=== PATIENT | female | born 1990 | race Caucasian/White ===

== ENCOUNTER 2017-02-05 00:14 | Emergency (ER) | payer OTHER ==
--- NOTE | 2017-02-05 01:07 | ED Physician Documentation ---
PD HPI HEENT - Stated complaint Stated Complaint: TOOTHACHE - Chief complaint Chief Complaint: Heent - History obtained from History obtained from: Patient - History of Present Illness Timing - onset: Today Timing - details: Gradual onset Pain level now: 8 Location: Tooth Improves: Nothing Worsens: Everything Associated symptoms: No: Fever - Additional information Additional information: broke tooth few months ago but again today, which resulted in sudden worsening of pain associated with the tooth. Inadequate relief with topical (ambesol). 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 - Present Medications Home Medications: Ambulatory Orders Medication Instructions Recorded Confirmed Penicillin Vk 500 mg PO Q6H 5 Days 02/05/17 oxyCODONE/ACET 5/325 [Percocet 5 1 - 2 each PO Q6H PRN #14 tablet 02/05/17 mg/325 mg] - Allergies Allergies/Adverse Reactions: Allergies Allergy/AdvReac Type Severity Reaction Status Date / Time pentobarbital Allergy Unknown Verified 02/05/17 00:19 Sulfa (Sulfonamide Allergy Rash Verified 02/05/17 00:19 Antibiotics) a seizure medicine Allergy Unknown Uncoded 02/05/17 00:20 - Social History Does the pt smoke?: Yes Smoking Status: Current every day smoker Does the pt drink ETOH?: No Does the pt have substance abuse?: No - Immunizations Immunizations are current?: Yes - POLST Patient has POLST: No PD ED PE NORMAL - Vitals Vital signs reviewed: Yes - General General: Alert and oriented X 3, No acute distress, Well developed/nourished - HEENT HEENT: Moist mucous membranes PD ED PE EXPANDED - HEENT HEENT: Dental decay HEENT Visual: 1 - tenderness (TTP; lateral (buccal) aspect of tooth is missing) Results - Vitals Vitals: Vital Signs - 24 hr 02/05/17 02/05/17 00:17 01:32 Temperature 36.7 C Heart Rate 102 H 94 Respiratory 20 16 Rate Blood Pressure 153/117 H 160/111 H O2 Saturation 98 97 Oxygen O2 Source Room air PD MEDICAL DECISION MAKING - ED course Complexity details: considered differential, d/w patient Departure - Departure Disposition: 01 Home, Self Care Clinical Impression: Pain due to dental caries Condition: Good Instructions: ED Tooth Pain, ED Hypertension Poss Follow-Up: STUART Matute [Provider Group] Prescriptions: Penicillin Vk 500 mg PO Q6H 5 Days oxyCODONE/ACET 5/325 [Percocet 5 mg/325 mg] 1 - 2 each PO Q6H PRN #14 tablet PRN Reason: Pain Discharge Date/Time: 02/05/17 01:34
[2017-02-05] MEDS ORDERED: oxyCODONE/ACET 5/325 Prepack 4 PO STA (01:14)
[2017-02-05] MEDS ORDERED: PENICILLIN VK 250 MG TABLET PO STA (01:15)
[2017-02-05] MEDS ORDERED: PENICILLIN VK 250 MG TABLET PO ONE (01:22)
[2017-02-05] MEDS ORDERED: oxyCODONE/ACET 5/325 Prepack 4 PO ONE (01:22)
[2017-02-05 01:33] VITALS: BP 160/111
== END 2017-02-05 01:34 | disposition home or self-care (01) ==
LOC: ED 00:14
DX: K08.89 Other specified disorders of teeth and supporting structures (principal); K02.9 Dental caries, unspecified; F17.200 Nicotine dependence, unspecified, uncomplicated
CPT/HCPCS: 99283; A9270

== ENCOUNTER 2017-07-10 21:37 | Emergency (ER) | payer OTHER ==
[2017-07-10 22:05] LABS: BILIRUBIN,URINE NEGATIVE (NEGATIVE)
[2017-07-10 22:06] LABS: UA CHARGE (STRIP ONLY) YES; UR CULTURE IF IND NOT INDICATED
[2017-07-10 22:08] LABS: HCG UR QUAL NEGATIVE
[2017-07-10] MEDS ORDERED: SODIUM CHLORIDE 0.9% 1,000 ML IV ONE (23:35)
--- NOTE | 2017-07-10 23:51 | Ultrasound Preliminary Report ---
Exam: US PELVIC NON OB W/DOPPLER IMPRESSION: 1. Uterus and ovaries appear normal. 2. Hypoechoic right lower quadrant focus in the area of tenderness measuring 8 mm, of uncertain signi ficance. This does not have obvious sonographic appearance of appendix but correlate for any symptoms of appendicitis. [facility] SITE ID: [id number]
--- NOTE | 2017-07-10 23:54 | Ultrasound Report ---
EXAM: PELVIC ULTRASOUND EXAM DATE: 07/10/2017 11:37 PM. CLINICAL HISTORY: Right adnexal pain. COMPARISON: None. TECHNIQUE: Realtime transabdominal pelvic scan performed to identify the uterus and adnexa and as an overview of other pelvic structures, followed by transvaginal scan to provide greater detail of the u terus and adnexa, with static image documentation. FINDINGS: Uterus: 7.6 x 4.8 x 5.7 cm, volume 109 cc. Retroverted position. Normal overall size and echotexture. Masses: None. Endometrium: 16 mm. Thickened. Cervix: Unremarkable. Right Ovary: 2.4 x 1.7 x 4.0 cm, volume 8.5 cc. Normal echotexture and blood flow. Left Ovary: 2.7 x 2.5 cm. Suboptimally seen. Blood flow is demonstrated. Free Fluid: None. Other: Hypoechoic focus in the area of tenderness measuring 8.3 mm. IMPRESSION: 1. Uterus and ovaries appear normal. 2. Hypoechoic right lower quadrant focus in the area of tenderness measuring 8 mm, of uncertain signi ficance. This does not have obvious sonographic appearance of appendix but correlate for any symptoms of appendicitis. [facility] Referring Provider Line: [phone] SITE ID: [id number]
--- NOTE | 2017-07-10 23:55 | ED Physician Documentation ---
History of Present Illness - Stated complaint Stated Complaint: LOWER ABD PX - Chief complaint Chief Complaint: Abd Pain - History obtained from History obtained from: Patient (pt is here for evlaution of RLQ ABD pain described as burning. started approx 5 hours prior to arrival in the ER. no fevers, no nausea or vomiting, no rashes, no urinary sx, no vaginal sx.) Review of Systems Constitutional: denies: Fever, Chills Cardiac: denies: Chest pain / pressure, Palpitations Respiratory: denies: Dyspnea, Cough GI: reports: Abdominal Pain. 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 - Allergies Allergies/Adverse Reactions: Allergies Allergy/AdvReac Type Severity Reaction Status Date / Time pentobarbital Allergy Unknown Verified 07/10/17 21:48 Sulfa (Sulfonamide Allergy Rash Verified 07/10/17 21:48 Antibiotics) - Social History Does the pt smoke?: Yes Smoking Status: Current every day smoker Does the pt drink ETOH?: No Does the pt have substance abuse?: No - Immunizations Immunizations are current?: Yes - POLST Patient has POLST: No PD ED PE NORMAL - Vitals Vital signs reviewed: Yes - General General: Alert and oriented X 3, No acute distress, Well developed/nourished - HEENT HEENT: Atraumatic, Moist mucous membranes - Cardiac Cardiac: No murmur. No: RRR (tachycardic but regular) - Respiratory Respiratory: No respiratory distress, Clear bilaterally - Abdomen Abdomen: Soft. No: Non tender (TTP RLQ/right adnexa no rebound, no guarding. ) - Back Back: No CVA TTP - Derm Derm: Normal color, Warm and dry, No rash - Extremities Extremities: No deformity, No tenderness to palpate, No edema - Neuro Neuro: Alert and oriented X 3 Eye Opening: Spontaneous Motor: Obeys Commands Verbal: Oriented GCS Score: 15 - Psych Psych: Normal mood, Normal affect Results - Vitals Vitals: Vital Signs - 24 hr 07/10/17 07/10/17 07/11/17 21:44 22:41 01:10 Temperature 36.6 C Heart Rate 102 H 83 Respiratory 18 17 16 Rate Blood Pressure 142/99 H 99/69 O2 Saturation 98 95 07/11/17 01:12 Temperature Heart Rate Respiratory 16 Rate Blood Pressure 102/48 L O2 Saturation Oxygen O2 Source Room air - Labs Labs: Laboratory Tests 07/10/17 07/10/17 07/10/17 21:55 21:55 23:45 WBC 13.0 H RBC 4.80 Hgb 13.2 Hct 40.0 MCV 83.4 MCH 27.6 MCHC 33.1 RDW 14.1 Plt Count 294 MPV 8.1 Neut # 9.0 H Lymph # 3.1 [place] # 0.7 Eos # 0.1 Baso # 0.1 Absolute Nucleated RBC 0.00 Nucleated RBC % 0.0 Sodium Potassium Chloride Carbon Dioxide Anion Gap BUN Creatinine Estimated GFR (MDRD) Glucose Calcium Urine Color YELLOW Urine Clarity CLEAR Urine pH 7.0 Ur Specific [place] 1.010 1.010 Urine Protein NEGATIVE Urine Glucose (UA) NEGATIVE Urine Ketones NEGATIVE Urine Occult Blood NEGATIVE Urine Nitrite NEGATIVE Urine Bilirubin NEGATIVE Urine Urobilinogen 0.2 (NORMAL) Ur Leukocyte Esterase NEGATIVE Ur Microscopic Review NOT INDICATED Urine Culture Comments NOT INDICATED Urine HCG, Qual NEGATIVE 07/10/17 23:45 WBC RBC Hgb Hct MCV MCH MCHC RDW Plt Count MPV Neut # Lymph # [place] # Eos # Baso # Absolute Nucleated RBC Nucleated RBC % Sodium 140 Potassium 3.8 Chloride 103 Carbon Dioxide 28 Anion Gap 9.0 BUN 11 Creatinine 0.7 Estimated GFR (MDRD) 100 Glucose 105 H Calcium 9.2 Urine Color Urine Clarity Urine pH Ur Specific [place] Urine Protein Urine Glucose (UA) Urine Ketones Urine Occult Blood Urine Nitrite Urine Bilirubin Urine Urobilinogen Ur Leukocyte Esterase Ur Microscopic Review Urine Culture Comments Urine HCG, Qual - Rads (name of study) Pelvic US Radiology: Final report received (uterus and ovaries appear normal. hypoechoic RLQ focus in the area of tenderness [id number] of uncertain significance ), EMP read contemporaneously CT ABD/Pelvis Radiology: Final report received (Normal appendix and gallbladder stones ), EMP read contemporaneously PD MEDICAL DECISION MAKING - ED course Complexity details: reviewed results, re-evaluated patient, considered differential, d/w patient ED course: pt with unremarkable pelvis US and normal appy on CT scan. does have an elevated WBC count but this is non-specific and source of infection noticed on exam. Pt reports improvement/resolution of her symptoms after the US tech placed the probe over the area of pain. no vimiting and no fever. discussed wiht the patient. No indication for ABX now we discussed return precautions. she expressed understanding. Departure - Departure Disposition: 01 Home, Self Care Clinical Impression: Abdominal pain Condition: Good Instructions: ED Abdominal Pain Unkn Cause Follow-Up: Primary, care provider [Other] Comments: Return to the ER for any new or worsening symptoms. You may have continued loose stools over the next day or so increase your fluid intake and return to the ER if you cannot tolerate fluids. Follow up with your primary care provider.
[2017-07-11 00:06] LABS: BASOPHILS # (AUTO) 0.1 10^3/uL (0.0-0.1); BASOPHILS % (AUTO) 0.6 %; EOSINOPHILS # (AUTO) 0.1 10^3/uL (0.0-0.7); HGB - HEMOGLOBIN 13.2 g/dL (12.0-16.0); LYMPHOCYTES # (AUTO) 3.1 10^3/uL (1.5-3.5); MEAN CORPUSCULAR HEMOGLOBIN 27.6 pg (27.0-31.0); MEAN CORPUSCULAR HGB CONC 33.1 g/dL (32.0-36.0); MEAN CORPUSCULAR VOLUME 83.4 fL (81.0-99.0); MEAN PLATELET VOLUME 8.1 fL (7.9-10.8); MONOCYTES # (AUTO) 0.7 10^3/uL (0.0-1.0); MONOCYTES % (AUTO) 5.3 %; NEUTROPHILS % (AUTO) 69.1 %; RED CELL DISTRIBUTION WIDTH 14.1 % (12.0-15.0)
[2017-07-11 00:13] LABS: CALCIUM 9.2 mg/dL (8.5-10.3); CREATININE 0.7 mg/dL (0.4-1.0); POTASSIUM 3.8 mmol/L (3.5-5.0)
[2017-07-11] MEDS ORDERED: IOPAMIDOL-300 100 ML VIAL ONE (00:34)
[2017-07-11] MEDS ORDERED: IOPAMIDOL-300 100 ML VIAL IVP ONE (00:56)
--- NOTE | 2017-07-11 01:09 | CT Preliminary Report ---
Exam: CT ABDOMEN/PELVIS W/ IMPRESSION: 1. Appendix appears normal. 2. Fatty liver and splenomegaly. 3. Multiple stones in the gallbladder. No obvious cholecystitis. [facility] SITE ID: [id number]
--- NOTE | 2017-07-11 01:11 | CT Report ---
EXAM: CT ABDOMEN AND PELVIS EXAM DATE: 07/11/2017 12:47 AM. CLINICAL HISTORY: Right lower quadrant pain. COMPARISONS: Ultrasound, 07/10/2017. TECHNIQUE: Routine helical CT imaging was performed through the abdomen and pelvis. IV contrast: 100 ML ISOVUE 300. Enteric contrast: No. Reconstructions: Coronal and sagittal. In accordance with CT protocol optimization, one or more of the following dose reduction techniques w ere utilized for this exam: automated exposure control, adjustment of mA and/or KV based on patient s ize, or use of iterative reconstructive technique. FINDINGS: Lung Bases: Unremarkable. Liver: Fatty liver. Gallbladder/Bile Ducts: Stones in the gallbladder. No obvious cholecystitis. Spleen: Enlarged at 14.6 cm. Pancreas: Normal. Adrenal Glands: Normal. Kidneys: Normal. No masses or hydronephrosis. Peritoneal Cavity/Bowel: No bowel obstruction seen. No diverticulitis. No free air or free fluid. Nor mal-sized mesenteric and retroperitoneal lymph nodes. Appendix appears normal. Pelvic Organs: Normal. The bladder and visualized pelvic organs are within normal limits. Vasculature: No aneurysms or other significant abnormality. Bones: No significant abnormality. Other: None. IMPRESSION: 1. Appendix appears normal. 2. Fatty liver and splenomegaly. 3. Multiple stones in the gallbladder. No obvious cholecystitis. [facility] Referring Provider Line: [phone] SITE ID: [id number]
[2017-07-11 01:13] VITALS: BP 102/48
== END 2017-07-11 01:52 | disposition home or self-care (01) ==
LOC: ED 21:37
DX: R10.31 Right lower quadrant pain (principal); F17.200 Nicotine dependence, unspecified, uncomplicated
CPT/HCPCS: 36415; 74177; 76830; 76856; 80048; 81003; 81025; 85025; 93975; 96360; 99284; Q9967; 81001; 87086

== ENCOUNTER 2017-08-29 13:59 | Emergency (ER) | payer OTHER ==
[2017-08-29 14:06] VITALS: BP 140/88
[2017-08-29] MEDS ORDERED: DEXAMETHASONE 10 MG/ML VIAL PO STA (15:43)
--- NOTE | 2017-08-29 15:43 | ED Physician Documentation ---
History of Present Illness - Stated complaint Stated Complaint: SORE THROAT/SINUS PRESSURE - Chief complaint Chief Complaint: Heent - Additonal information Additional information: hx from pt 27 y/o f denies preg to ER with sore throat L ear pain and L maxillary sinus pain and swelling states she has some sort of tract from where her upper L second molar was removed and her sinus cavity also a bit of a cough Review of Systems Constitutional: denies: Fever, Chills Nose: reports: Congestion, Sinus pressure / pain Throat: reports: Sore throat Respiratory: reports: Cough : denies: Now EGA PD PAST MEDICAL HISTORY - Past Medical History Past Medical History: Yes Neuro: Seizure disorder - Past Surgical History 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 - Present Medications Home Medications: Ambulatory Orders Medication Instructions Recorded Confirmed Amox/Clav 875/125 [Augmentin] 1 each PO Q12H #20 tablet 08/29/17 Fluticasone [Flonase] 1 sprays STUART BID PRN #1 bottle 08/29/17 - Allergies Allergies/Adverse Reactions: Allergies Allergy/AdvReac Type Severity Reaction Status Date / Time pentobarbital Allergy Unknown Verified 07/10/17 21:48 Sulfa (Sulfonamide Allergy Rash Verified 07/10/17 21:48 Antibiotics) - Social History Does the pt smoke?: Yes Smoking Status: Current every day smoker Does the pt drink ETOH?: No Does the pt have substance abuse?: No - Immunizations Immunizations are current?: Yes - POLST Patient has POLST: No PD ED PE NORMAL - Vitals Vital signs reviewed: Yes - HEENT HEENT: Atraumatic. No: Pharynx benign (crypts erythema some swelling and exudate on L, purulent PND, L maxillary sinus swelling and mild erythema and TTP ) - Neck Neck: No bony TTP. No: No adenopathy (anterior L > R) - Cardiac Cardiac: RRR - Respiratory Respiratory: No respiratory distress, Clear bilaterally - Abdomen Abdomen: Non tender Results - Vitals Vitals: Vital Signs - 24 hr 08/29/17 14:03 Temperature 35.9 C L Heart Rate 100 Respiratory 18 Rate Blood Pressure 140/88 H O2 Saturation 98 Oxygen O2 Source Room air - Labs Labs: Laboratory Tests 08/29/17 14:24 Group A Strep Rapid Negative PD MEDICAL DECISION MAKING - ED course ED course: sinusitis - often viral but in this pt case with tract from oral cavity and visible swelling etc will rx ab also gave decadron in ER to decrease tonsillar swelling Departure - Departure Disposition: 01 Home, Self Care Clinical Impression: Sinusitis Qualifiers: Sinusitis location: maxillary Chronicity: acute Recurrence: non-recurrent Qualified Code(s): J01.00 - Acute maxillary sinusitis, unspecified Condition: Good Instructions: ED Sinusitis Abx Tx Prescriptions: Amox/Clav 875/125 [Augmentin] 1 each PO Q12H #20 tablet Fluticasone [Flonase] 1 sprays STUART BID PRN #1 bottle PRN Reason: sinus congestion Forms: Activity restrictions
[2017-08-29] MEDS ORDERED: CHERRY SYRUP 10 ML UDC PO ONE (15:53)
== END 2017-08-29 15:50 | disposition home or self-care (01) ==
LOC: ED 13:59
DX: J01.00 Acute maxillary sinusitis, unspecified (principal); F17.200 Nicotine dependence, unspecified, uncomplicated
CPT/HCPCS: 87070; 87430; 99283; A9270